=== PATIENT | male | born 2000 | race Caucasian/White ===

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

== ENCOUNTER 2018-01-04 16:23 | Emergency (ER) | payer MEDICAID ==
[~2018-01-04] VITALS: Ht 185.4 cm; Wt 71.0 kg
[~2018-01-04 16:23] MED LIST changes: +HYDR-569 PO
[2018-01-04 16:36] VITALS: BP 111/66
== END 2018-01-04 18:32 | disposition home or self-care (01) ==
LOC: ER 16:23
DX: S01.21XD Laceration without foreign body of nose, subsequent encounter (principal); Z79.899 Other long term (current) drug therapy; X58.XXXD Exposure to other specified factors, subsequent encounter
CPT/HCPCS: 99284; A6449

== ENCOUNTER 2018-01-09 06:55 | Emergency (ER) | payer MEDICAID ==
[~2018-01-09] VITALS: Ht 185.4 cm; Wt 59.0 kg
[2018-01-09 08:16] VITALS: BP 86/53
== END 2018-01-09 08:17 | disposition home or self-care (01) ==
LOC: ER 06:55
DX: S01.21XD Laceration without foreign body of nose, subsequent encounter (principal); X58.XXXD Exposure to other specified factors, subsequent encounter
CPT/HCPCS: 99281

== ENCOUNTER 2021-08-26 19:36 | Emergency (ER) | payer MEDICAID ==
[~2021-08-26] VITALS: Ht 180.3 cm; Wt 80.6 kg
[~2021-08-26 19:36] MED LIST changes: +HYDR-4383 PO; -HYDR-569 PO
[2021-08-26 19:46] VITALS: BP 120/77
== END 2021-08-26 22:22 | disposition home or self-care (01) ==
LOC: ER 19:36
DX: J02.9 Acute pharyngitis, unspecified (principal); Z91.040 Latex allergy status; Z79.2 Long term (current) use of antibiotics; Z79.899 Other long term (current) drug therapy
CPT/HCPCS: 87081; 87880; 99283

== ENCOUNTER 2022-12-25 15:14 | Emergency (ER) | payer MEDICAID ==
[~2022-12-25] VITALS: Ht 182.9 cm; Wt 70.5 kg
[2022-12-25 15:22] VITALS: BP 130/76
== END 2022-12-25 16:45 | disposition home or self-care (01) ==
LOC: ER 15:15
DX: R00.2 Palpitations (principal); F15.90 Other stimulant use, unspecified, uncomplicated; F41.9 Anxiety disorder, unspecified; Z91.040 Latex allergy status
CPT/HCPCS: 93005; 99283